=== PATIENT | male | born 1995 | race Caucasian/White ===

== ENCOUNTER 2018-01-15 16:55 | Emergency (ER) | payer SELFPAY ==
[~2018-01-15] VITALS: Ht 185.4 cm; Wt 110.0 kg
[2018-01-15 16:56] VITALS: BP 182/111; PULSE 80; RESP 20; TEMP 97.6; O2SAT 99
[2018-01-15 17:10] VITALS: BP 139/94; PULSE 96; RESP 18; O2SAT 97
[2018-01-15] MEDS ORDERED: SODIUM CHLOR 0.9% 1000 ML INJ 1,000 ML IV SCH (17:17)
--- NOTE | 2018-01-15 17:18 | PD ---
HPI Chief Complaint: Abdominal Pain Time Seen by Provider: 17:05 Travel History International Travel<30 days: No Contact w/Intl Traveler<30days: No Traveled to known affect area: No History of Present Illness HPI Patient 22-year-old male otherwise healthy presents emergency department for evaluation of abdominal pain. Patient states the pain is been going on and off , periumbilically for the the past 4 months. He went to an urgent care facility today and told him about the pain he was referred to the emergency department for evaluation and possible CT scanning. Patient also endorses some burning on urination but thinks he might have a hernia. He states the pain gets worse when he lifts heavy objects. No fevers no nausea but states his stomach is empty certainly brings up yellow "bile". Patient states symptoms wax and wane, moderate and worse intensity, exacerbated by lifting, duration and associated signs symptoms as above PFSH Past Medical History Medical History: Denies Significant Hx Tetanus Vaccination: < 5 Years Past Surgical History Surgical History: No Previous Surgery Social History Alcohol Use: No Tobacco Use: No Substance Use: Yes (marijuana) Allergies-Medications (Allergen,Severity, Reaction): Coded Allergies: No Known Allergies (Unverified , 01/15/18) Review of Systems Except as stated in HPI: all other systems reviewed are Neg Physical Exam Narrative GENERAL: Well-developed overweight male in no obvious distress SKIN: Focused skin assessment warm/dry. HEAD: Atraumatic. Normocephalic. EYES: Pupils equal and round. No scleral icterus. No injection or drainage. ENT: No nasal bleeding or discharge. Mucous membranes pink and moist. NECK: Trachea midline. No JVD. CARDIOVASCULAR: Regular rate and rhythm. No murmur appreciated. RESPIRATORY: No accessory muscle use. Clear to auscultation. Breath sounds equal bilaterally. GASTROINTESTINAL: Abdomen soft, non-tender, nondistended. Hepatic and splenic margins not palpable. No rebound no percussive tenderness, no inguinal hernia, psoas and obturator signs negative, Coello sign negative, no CVA tenderness. No overlying rash or bruising. GENITOURINARY: Grossly normal uncircumcised male genitalia, no testicular tenderness no hernia peer MUSCULOSKELETAL: No obvious deformities. No clubbing. No cyanosis. No edema. NEUROLOGICAL: Awake and alert. No obvious cranial nerve deficits. Motor grossly within normal limits. Normal speech. PSYCHIATRIC: Appropriate mood and affect; insight and judgment normal. Data Data Last Documented VS Vital Signs Date Time Temp Pulse Resp B/P (MAP) Pulse Ox O2 Delivery O2 Flow Rate FiO2 01/15/18 21:28 01/15/18 20:24 62 16 100 Room Air 01/15/18 16:56 97.6 Orders Orders Urinalysis - C+S If Indicated (01/15/18 17:11) Gc And Chlamydia Pcr (01/15/18 17:11) Complete Blood Count With Diff (01/15/18 17:17) Comprehensive Metabolic Panel (01/15/18 17:17) Lipase (01/15/18 17:17) Iv Access Insert/Monitor (01/15/18 17:17) Ecg Monitoring (01/15/18 17:17) Oximetry (01/15/18 17:17) Sodium Chlor 0.9% 1000 Ml Inj (Ns 1000 M (01/15/18 17:17) Sodium Chloride 0.9% Flush (Ns Flush) (01/15/18 17:30) Ketorolac Inj (Toradol Inj) (01/15/18 17:30) Ct Abd/Pel W Iv Contrast(Rout) (01/15/18 ) Iohexol 350 Inj (Omnipaque 350 Inj) (01/15/18 19:40) Ed Discharge Order (01/15/18 20:00) Labs Laboratory Tests Test 01/15/18 17:24 01/15/18 17:35 Urine Color YELLOW Urine Turbidity CLEAR Urine pH 6.0 Urine Specific [place] 1.030 Urine Protein TRACE mg/dL Urine Glucose (UA) NEG mg/dL Urine Ketones 10 mg/dL Urine Occult Blood SMALL Urine Nitrite NEG Urine Bilirubin NEG Urine Urobilinogen LESS THAN 2.0 MG/DL Urine Leukocyte Esterase NEG Urine RBC 2 /hpf Urine WBC 1 /hpf Urine Mucus FEW /lpf Microscopic Urinalysis Comment CULT NOT INDICATED Chlamydia trachomatis DNA (PCR) NOT DETECTED Neisseria gonorrhoeae DNA (PCR) NOT DETECTED White Blood Count 12.0 TH/MM3 Red Blood Count 5.37 MIL/MM3 Hemoglobin 16.0 GM/DL Hematocrit 46.3 % Mean Corpuscular Volume 86.2 FL Mean Corpuscular Hemoglobin 29.7 PG Mean Corpuscular Hemoglobin Concent 34.5 % Red Cell Distribution Width 12.8 % Platelet Count 166 TH/MM3 Mean Platelet Volume 11.6 FL Neutrophils (%) (Auto) 74.0 % Lymphocytes (%) (Auto) 18.2 % Monocytes (%) (Auto) 7.1 % Eosinophils (%) (Auto) 0.1 % Basophils (%) (Auto) 0.6 % Neutrophils # (Auto) 8.9 TH/MM3 Lymphocytes # (Auto) 2.2 TH/MM3 Monocytes # (Auto) 0.8 TH/MM3 Eosinophils # (Auto) 0.0 TH/MM3 Basophils # (Auto) 0.1 TH/MM3 CBC Comment DIFF FINAL Differential Comment Blood Urea Nitrogen 13 MG/DL Creatinine 0.96 MG/DL Random Glucose 89 MG/DL Total Protein 8.4 GM/DL Albumin 4.3 GM/DL Calcium Level 9.3 MG/DL Alkaline Phosphatase 65 U/L Aspartate Amino Transf (AST/SGOT) 16 U/L Alanine Aminotransferase (ALT/SGPT) 18 U/L Total Bilirubin 0.5 MG/DL Sodium Level 141 MEQ/L Potassium Level 3.8 MEQ/L Chloride Level 109 MEQ/L Carbon Dioxide Level 21.6 MEQ/L Anion Gap 10 MEQ/L Estimat Glomerular Filtration Rate 99 ML/MIN Lipase 71 U/L [facility] Medical Decision Making Medical Screen Exam Complete: Yes Emergency Medical Condition: Yes Differential Diagnosis Gastritis, gastroenteritis, appendicitis unlikely, hernia unlikely, colitis, ulcerative colitis, Crohn's disease, milk intolerance, gluten intolerance peer Narrative Course Patient room to the emergency department, UA CBC lipase CMP are unremarkable. Patient given Toradol, had complete relief of the symptoms. Discussed with him CAT scan wrist benefits competitions alternatives including follow-up with a primary care physician or wic site coordinator as well as radiation exposure risk. Discussed my low likelihood of suspicion of acute abdominal emergency and that this certainly could be deferred. Using shared decision making he opts for a CAT scan at this time. Last 24 hours Impressions Abdomen/Pelvis CT 01/15/18 0000 Signed Impressions: Service Date/Time: Monday, January 15, 2018 19:34 - CONCLUSION: Normal examination. Jose Garcia MD Discussed with the patient and no obvious cause of the patient's abdominal pain has yet been identified and recommend following up with a primary care physician or wic site coordinator. Discussed possibilities including ulcerative colitis Crohn's milk intolerance and gluten intolerance. Discussed symptomatic management return to ED criteria. He is stable for discharge Diagnosis Primary Impression: Abdominal pain Referrals: Weston Garduno MD [facility] Disposition: 01 DISCHARGE HOME Condition: Stable Philip Hickey MD January 15, 2018 17:18
[2018-01-15] MEDS ORDERED: SODIUM CHLORIDE 0.9% FLUSH 10 ML FLUSH IV FLUSH PRN (17:30)
[2018-01-15] MEDS ORDERED: KETOROLAC TROMETHAMINE 30 MG/ML (IVP) VIAL IVP ONE (17:30)
[2018-01-15 18:06] LABS: AUTOMATED NEUTROPHIL # 8.9 TH/MM3 (1.8-7.7); BASOPHIL # 0.1 TH/MM3 (0-0.2); BASOPHIL % 0.6 % (0.0-2.0); EOSINOPHIL % 0.1 % (0.0-4.0); HEMATOCRIT 46.3 % (39.0-51.0); LYMPH % 18.2 % (9.0-44.0); LYMPHOCYTE # 2.2 TH/MM3 (1.0-4.8); MEAN CELL VOLUME 86.2 FL (80.0-100.0); MEAN CORPUSCULAR HEMOGLOBIN 29.7 PG (27.0-34.0); MEAN CORPUSCULAR HGB CONC 34.5 % (32.0-36.0); MEAN PLATELET VOLUME 11.6 FL (7.0-11.0); MONO % 7.1 % (0.0-8.0); MONOCYTE # 0.8 TH/MM3 (0-0.9); PLATELET COUNT 166 TH/MM3 (150-450); RED BLOOD COUNT 5.37 MIL/MM3 (4.50-5.90); RED CELL DISTRIBUTION WIDTH 12.8 % (11.6-17.2)
[2018-01-15 18:12] LABS: BILIRUBIN, URINE NEG (NEG); BLOOD, URINE SMALL (NEG); GLUCOSE,URINE NEG (NEG); KETONE, URINE 10 mg/dL (NEG); MUCUS URINE FEW /lpf (OCC); NITRITE,URINE NEG (NEG); URINE COLOR YELLOW (YELLW/STRAW); URINE LEUKOCYTE ESTERASE NEG (NEG)
[2018-01-15 18:21] LABS: ALBUMIN 4.3 GM/DL (3.4-5.0); AST (GOT) 16 U/L (15-37); BICARBONATE 21.6 MEQ/L (21.0-32.0); BLOOD UREA NITROGEN 13 MG/DL (7-18); CALCIUM 9.3 MG/DL (8.5-10.1); CHLORIDE 109 MEQ/L (98-107); CREATININE 0.96 MG/DL (0.60-1.30); GLOMERULAR FILTRATION RATE 99 ML/MIN (>89); GLUCOSE,RANDOM 89 MG/DL (74-106); SODIUM (NA) 141 MEQ/L (136-145)
[2018-01-15 18:27] LABS: ALKALINE PHOSPHATASE 65 U/L (45-117); ALT (GPT) 18 U/L (12-78); TOTAL BILIRUBIN ADULT 0.5 MG/DL (0.2-1.0); TOTAL PROTEIN 8.4 GM/DL (6.4-8.2)
[2018-01-15] MEDS ORDERED: IOHEXOL 350 MG/ML 10 ML VIAL (for RAD DIAG) IVCONTRAST ONE (19:40)
--- NOTE | 2018-01-15 19:52 | RADRPT ---
EXAM DATE/TIME: 01/15/2018 19:34 [facility] COMPARISON: No previous studies available for comparison. INDICATIONS : Abdomen pain. IV CONTRAST: 71 cc Omnipaque 350 (iohexol) IV ORAL CONTRAST: No oral contrast ingested. RADIATION DOSE: 9.96 CTDIvol (mGy) MEDICAL HISTORY : None SURGICAL HISTORY : None. ENCOUNTER: Initial ACUITY: 1 day PAIN SCALE: 5/10 LOCATION: Bilateral lower quadrant TECHNIQUE: Volumetric scanning of the abdomen and pelvis was performed. Using automated exposure control and ad justment of the mA and/or kV according to patient size, radiation dose was kept as low as reasonably achievable to obtain optimal diagnostic quality images. DICOM format image data is available electro nically for review and comparison. FINDINGS: LOWER LUNGS: The visualized lower lungs are clear. LIVER: Homogeneous density without lesion. There is no dilation of the biliary tree. No calcified gallston es. SPLEEN: Normal size without lesion. PANCREAS: Within normal limits. KIDNEYS: Normal in size and shape. There is no mass, stone or hydronephrosis. ADRENAL GLANDS: Within normal limits. VASCULAR: There is no aortic aneurysm. BOWEL/MESENTERY: The stomach, small bowel, and colon demonstrate no acute abnormality. There is no free intraperitone al air or fluid. Normal appendix. ABDOMINAL WALL: Within normal limits. RETROPERITONEUM: There is no lymphadenopathy. BLADDER: No wall thickening or mass. REPRODUCTIVE: Within normal limits. INGUINAL: There is no lymphadenopathy or hernia. MUSCULOSKELETAL: Within normal limits for patient age. CONCLUSION: Normal examination. Jose Garcia MD on January 15, 2018 at 19:48 Board Certified Radiologist. This report was verified electronically.
[2018-01-15 20:24] VITALS: BP 122/75; PULSE 62; RESP 16; O2SAT 100
== END 2018-01-15 21:29 | disposition home or self-care (01) ==
LOC: NEPD 16:55
DX: R10.9 Unspecified abdominal pain (principal)
CPT/HCPCS: 74177; 80053; 81001; 83690; 85025; 87491; 87591; 96374; 99285; J1885; J7030; Q9967